=== PATIENT | male | born 1965 | race Caucasian/White ===

== ENCOUNTER 2022-03-21 09:27 | Emergency (ER) | payer OTHER ==
[~2022-03-21 09:27] MED LIST: IBUPROFEN800 MG PO; NEXIUM20 MG PO; PERCOCET 5-3251 EACH PO; VOLTAREN **OUT75 MG PO
[2022-03-21] MEDS ORDERED: NAPROXEN500 MG PO (10:04)
== END 2022-03-21 10:07 | disposition home or self-care (01) ==
LOC: FER 09:27
DX: M25.512 Pain in left shoulder (principal); Z28.310 Unvaccinated for COVID-19
CPT/HCPCS: 93005